=== PATIENT | male | born 1935 | race Caucasian/White ===

== ENCOUNTER 2019-10-26 14:33 | Inpatient (IN) | payer OTHER ==
[~2019-10-26] VITALS: Ht 182.9 cm; Wt 104.5 kg
[~2019-10-26 14:33] MED LIST: ACET-3071 PO; ASPI-1265 PO; ATOR10TA70 PO; CEFD300C3 PO; CLON0.1T2 PO; DOCU-148; DULO-31 PO; FINA5TAB11 PO; FLO0.4C PO; LACT1CAP26 PO; MAGN400C PO; METO-539 PO; MULT-1085 PO; NOR5T PO; PANT40TA4 PO; POLY119P2 PO
[2019-10-26 15:36] LABS: BASOPHILS # (AUTO) 0.1 X10'3 (0-0.2); BASOPHILS % (AUTO) 0.8 % (0-1); EOSINOPHILS # (AUTO) 0.2 X10'3 (0-0.9); EOSINOPHILS % (AUTO) 2.7 % (0-6); HEMOGLOBIN 13.3 g/dl (14.0-17.9); LYMPHOCYTES # (AUTO) 1.3 X10'3 (1.1-4.8); LYMPHOCYTES % (AUTO) 17.3 % (21-51); MEAN CORPUSCULAR HEMOGLOBIN 29.6 PG (27.0-31.0); MEAN CORPUSCULAR HGB CONC 33.2 g/dL (33.0-36.5); MEAN CORPUSCULAR VOLUME 89.1 FL (78-98); MEAN PLATELET VOLUME 9.6 FL (7.4-10.4); MONOCYTES # (AUTO) 0.6 X10'3 (0-0.9); MONOCYTES % (AUTO) 8.7 % (2-12); NEUTROPHILS # (AUTO) 5.1 X10'3 (1.8-7.7); NEUTROPHILS % (AUTO) 70.5 % (42-75); PLATELET COUNT 236 X10'3 (140-440); RED BLOOD COUNT 4.49 X10'6 (4.70-6.10); RED CELL DISTRIBUTION WIDTH 14.3 % (11.5-14.5); WHITE BLOOD COUNT 7.3 X10'3 (4.5-11.0)
[2019-10-26 15:45] LABS: PARTIAL THROMBOPLASTIN TIME 29 SECONDS (22-32)
[2019-10-26 15:47] LABS: ALANINE AMINOTRANSFERASE 35 U/L (12-78); ALBUMIN 3.3 G/DL (3.4-5.0); ALBUMIN/GLOBULIN RATIO 0.9 (1.1-1.5); ALKALINE PHOSPHATASE 115 IU/L (46-116); ANION GAP 6 (8-16); ASPARTATE AMINO TRANSFERASE 15 U/L (10-37); BILIRUBIN,TOTAL 0.3 MG/DL (0.1-1.0); BLOOD UREA NITROGEN 32 MG/DL (7-18); BUN/CREATININE RATIO 29.6 (5.4-32.0); CALCIUM 10.2 MG/DL (8.5-10.1); CHLORIDE 106 MMOL/L (99-107); CREATININE 1.08 MG/DL (0.60-1.10); GLUCOSE 95 MG/DL (70-104); POTASSIUM 4.2 MMOL/L (3.5-5.1); SODIUM 141 MMOL/L (135-145); TOTAL CARBON DIOXIDE 29.1 MMOL/L (24-32); eGFR 65 ML/MIN
[2019-10-26] MEDS ORDERED: aspirin 325mg tablet PO ONE (16:00)
[2019-10-26] MEDS ORDERED: magnesium 4gm in 100ml NS 100 ML IV PRN (16:50)
[2019-10-26] MEDS ORDERED: potassium Cl 20 mEq SR tablet PO PRN (16:50)
[2019-10-26] MEDS ORDERED: magnesium 2GM in 50ml NS 50 ML IV PRN (16:50)
[2019-10-26] MEDS ORDERED: acetaminophen 325mg tablet PO PRN (16:50)
[2019-10-26] MEDS ORDERED: potassium CL 10mEq/100ml bag 100 ML IV PRN ×2 (16:50)
[2019-10-26] MEDS ORDERED: ondansetron/PF 4mg/2ml inj IV PRN (16:50)
[2019-10-26] MEDS ORDERED: CLON-473 PO (17:06)
[2019-10-26] MEDS ORDERED: AMLO5TAB16 PO (17:06)
[2019-10-26] MEDS ORDERED: LACT1CAP65 PO (17:06)
[2019-10-26] MEDS: normal saline 1000ml 1,000 ML IV SCH (17:19)
[2019-10-26] MEDS: clopidogrel 75mg tablet PO SCH (17:29)
[2019-10-26] MEDS ORDERED: clopidogrel 75mg tablet PO ONE (17:30)
[2019-10-26] MEDS ORDERED: METO-384 PO (19:14)
[2019-10-26] MEDS ORDERED: NITR0.4T51 SL (19:14)
[2019-10-26] MEDS: K and/or MAG REPLACEMENT MC SCH (20:00)
[2019-10-26 21:00] VITALS: BP 171/94
[2019-10-26 22:00] VITALS: BP 165/71
[2019-10-27 04:00] VITALS: BP 142/60
[2019-10-27 06:00] VITALS: BP 177/87
[2019-10-27 06:21] LABS: BASOPHILS # (AUTO) 0.1 X10'3 (0-0.2); BASOPHILS % (AUTO) 0.9 % (0-1); EOSINOPHILS # (AUTO) 0.2 X10'3 (0-0.9); EOSINOPHILS % (AUTO) 3.8 % (0-6); HEMATOCRIT 37.8 % (42.0-52.0); LYMPHOCYTES # (AUTO) 1.2 X10'3 (1.1-4.8); LYMPHOCYTES % (AUTO) 18.8 % (21-51); MEAN CORPUSCULAR HEMOGLOBIN 30.4 PG (27.0-31.0); MEAN CORPUSCULAR HGB CONC 34.5 g/dL (33.0-36.5); MEAN CORPUSCULAR VOLUME 88.1 FL (78-98); MEAN PLATELET VOLUME 9.9 FL (7.4-10.4); MONOCYTES # (AUTO) 0.8 X10'3 (0-0.9); NEUTROPHILS # (AUTO) 4.2 X10'3 (1.8-7.7); NEUTROPHILS % (AUTO) 64.5 % (42-75); PLATELET COUNT 216 X10'3 (140-440); RED BLOOD COUNT 4.29 X10'6 (4.70-6.10); RED CELL DISTRIBUTION WIDTH 14.1 % (11.5-14.5); WHITE BLOOD COUNT 6.5 X10'3 (4.5-11.0)
--- NOTE | 2019-10-27 06:27 | NUR ---
Problems reprioritized. Patient report given, questions answered & plan of care reviewed with GIO Donovan.
--- NOTE | 2019-10-27 06:35 | NUR ---
Patient in room ORTHO 4011. I have received report from Idalmis POWERS and had the opportunity to ask questions and assume patient care.
[2019-10-27 06:49] LABS: ALBUMIN 2.9 G/DL (3.4-5.0); ANION GAP 7 (8-16); BLOOD UREA NITROGEN 28 MG/DL (7-18); CALCIUM 9.7 MG/DL (8.5-10.1); CHLORIDE 108 MMOL/L (99-107); CHOL/HDL RATIO 3.5 (0.00-4.99); CHOLESTEROL 90 MG/DL (0-200); CREATININE 1.12 MG/DL (0.60-1.10); GLUCOSE 118 MG/DL (70-104); HDL CHOLESTEROL 26 MG/DL (35-60); LDL CHOLESTEROL 48 MG/DL (50-100); MAGNESIUM 1.4 MG/DL (1.5-2.4); POTASSIUM 3.6 MMOL/L (3.5-5.1); SODIUM 144 MMOL/L (135-145); TOTAL CARBON DIOXIDE 29.2 MMOL/L (24-32); TRIGLYCERIDES 114 MG/DL (20-135); eGFR 63 ML/MIN
[2019-10-27] MEDS: clopidogrel 75mg tablet PO SCH (07:29)
[2019-10-27 08:00] VITALS: BP 156/91
[2019-10-27] MEDS: K and/or MAG REPLACEMENT MC SCH ×2 (08:00→19:22)
[2019-10-27 12:00] VITALS: BP 177/87
[2019-10-27 14:42] LABS: CLARITY,URINE CLEAR (Clear); COLOR,URINE YELLOW (Yellow); GLUCOSE, URINE NEGATIVE (Neg); KETONES,URINE NEGATIVE (Neg); LEUKOCYTE ESTERASE ,URINE LARGE (Neg); NITRITES, URINE NEGATIVE (Neg); OCCULT BLOOD,URINE TRACE-INTACT (Neg); PH,URINE 6.5 (4.8-8.0); PROTEIN,URINE NEGATIVE (Neg); UROBILINOGEN,URINE 0.2 E.U/dL (0.2-1.0)
[2019-10-27 14:54] LABS: UA COLLECTION TYPE CLN CATCH MIDSTREAM
[2019-10-27 14:55] LABS: BACTERIA,URINE FEW /HPF (Neg); MUCUS STRANDS FEW /LPF (Neg); RBC,URINE 0-2 /HPF (0-2); SQUAMOUS EPITHELIAL CELL,UR FEW /LPF (FEW); WBC,URINE 50-100 /HPF (0-4)
[2019-10-27 15:42] VITALS: BP 170/81
[2019-10-27] MEDS ORDERED: nitroGLYCERIN 0.4mg SUBLingual tab SL PRN (17:40)
[2019-10-27] MEDS ORDERED: tamsulosin 0.4mg capsule PO SCH (17:40)
[2019-10-27] MEDS ORDERED: duloxetine 30mg CAPSULE.DR PO SCH (17:40)
[2019-10-27] MEDS ORDERED: cloNIDine 0.1 mg tablet PO PRN (17:40)
[2019-10-27] MEDS ORDERED: finasteride 5mg tablet PO SCH (17:40)
[2019-10-27] MEDS ORDERED: aspirin 81mg tab.chew PO SCH (17:40)
--- NOTE | 2019-10-27 18:04 | NUR ---
Problems reprioritized. Patient report given, questions answered & plan of care reviewed with Idalmis Reina RN.
[2019-10-27 20:00] VITALS: BP 175/87
[2019-10-27] MEDS: tamsulosin 0.4mg capsule PO SCH ×2 (20:00→20:04)
[2019-10-27] MEDS: duloxetine 30mg CAPSULE.DR PO SCH ×2 (20:00→20:05)
[2019-10-27] MEDS: pantoprazole 40mg Tablet.DR PO SCH ×2 (20:00→20:04)
[2019-10-27] MEDS: lactobacillus rhamnosus 10,000 MMU CELLS/CAPSULE PO SCH ×2 (20:00→20:04)
[2019-10-27] MEDS: finasteride 5mg tablet PO SCH ×2 (20:00→20:05)
[2019-10-27] MEDS: aspirin 81mg tab.chew PO SCH ×2 (20:04→20:13)
[2019-10-27] MEDS: atorvastatin 10mg tablet PO SCH (20:05)
--- NOTE | 2019-10-27 20:42 | NUR ---
Woke patient to assess and give meds. Patient very sleepy. Took his BS for 86. Patient did not eat any dinner. He refused all medications stating that he'd rather not take them. Explained what each one is for, but patient still refused them. I asked if he was feeling any different, but he just said he felt stiff from sleeping in an upright position. Got him changed, due to incont., and repositioned for comfort.
[2019-10-28] VITALS: BP 167/74
[2019-10-28 05:25] LABS: BASOPHILS % (AUTO) 0.6 % (0-1); EOSINOPHILS # (AUTO) 0.2 X10'3 (0-0.9); EOSINOPHILS % (AUTO) 3.6 % (0-6); HEMATOCRIT 38.1 % (42.0-52.0); HEMOGLOBIN 12.8 g/dl (14.0-17.9); LYMPHOCYTES # (AUTO) 1.4 X10'3 (1.1-4.8); LYMPHOCYTES % (AUTO) 20.7 % (21-51); MEAN CORPUSCULAR HGB CONC 33.6 g/dL (33.0-36.5); MEAN PLATELET VOLUME 9.6 FL (7.4-10.4); MONOCYTES # (AUTO) 0.8 X10'3 (0-0.9); MONOCYTES % (AUTO) 11.8 % (2-12); NEUTROPHILS # (AUTO) 4.2 X10'3 (1.8-7.7); NEUTROPHILS % (AUTO) 63.3 % (42-75); PLATELET COUNT 222 X10'3 (140-440); RED BLOOD COUNT 4.28 X10'6 (4.70-6.10); RED CELL DISTRIBUTION WIDTH 14.5 % (11.5-14.5); WHITE BLOOD COUNT 6.6 X10'3 (4.5-11.0)
[2019-10-28 05:39] LABS: ANION GAP 8 (8-16); BLOOD UREA NITROGEN 25 MG/DL (7-18); BUN/CREATININE RATIO 20.8 (5.4-32.0); CALCIUM 9.8 MG/DL (8.5-10.1); CHLORIDE 109 MMOL/L (99-107); GLUCOSE 84 MG/DL (70-104); MAGNESIUM 1.4 MG/DL (1.5-2.4); POTASSIUM 3.4 MMOL/L (3.5-5.1); SODIUM 144 MMOL/L (135-145); TOTAL CARBON DIOXIDE 27.5 MMOL/L (24-32); eGFR 58 ML/MIN
[2019-10-28 06:00] VITALS: BP 170/76
--- NOTE | 2019-10-28 06:26 | NUR ---
Problems reprioritized. Patient report given, questions answered & plan of care reviewed with GIO Mancuso.
--- NOTE | 2019-10-28 06:30 | NUR ---
Patient in room ORTHO 4011. I have received report from Idalmis POWERS and had the opportunity to ask questions and assume patient care.
[2019-10-28] MEDS: K and/or MAG REPLACEMENT MC SCH ×2 (08:00→20:00)
[2019-10-28] MEDS: finasteride 5mg tablet PO SCH (08:36)
[2019-10-28] MEDS: potassium Cl 20 mEq SR tablet PO PRN ×3 (08:41→17:00)
[2019-10-28] MEDS: tamsulosin 0.4mg capsule PO SCH (08:41)
[2019-10-28] MEDS: duloxetine 30mg CAPSULE.DR PO SCH (08:41)
[2019-10-28] MEDS: metoprolol succinate 25mg (24-HOUR) SR. Tablet PO SCH (08:41)
[2019-10-28] MEDS: clopidogrel 75mg tablet PO SCH (08:41)
[2019-10-28] MEDS: pantoprazole 40mg Tablet.DR PO SCH ×2 (08:42→19:09)
[2019-10-28] MEDS: magnesium oxide 400mg tablet PO SCH ×2 (08:42→19:09)
[2019-10-28] MEDS: aspirin 81mg tab.chew PO SCH (08:42)
[2019-10-28] MEDS: lactobacillus rhamnosus 10,000 MMU CELLS/CAPSULE PO SCH ×2 (08:42→19:09)
[2019-10-28] MEDS: multivitamins, therapeutics tablet PO SCH (08:43)
[2019-10-28] MEDS: acetaminophen 325mg tablet PO SCH ×3 (08:44→16:09)
[2019-10-28] MEDS: polyethylene glycol 3350 17gm powd pack PO SCH (08:56)
[2019-10-28 10:00] VITALS: BP 169/56
[2019-10-28] MEDS: magnesium Cl slow-release 64mg tablet PO PRN (12:30)
[2019-10-28] MEDS: cloNIDine 0.1 mg tablet PO PRN (17:00)
[2019-10-28 18:00] VITALS: BP 185/91
--- NOTE | 2019-10-28 18:06 | NUR ---
Problems reprioritized. Patient report given, questions answered & plan of care reviewed with Nuria POWERS.
--- NOTE | 2019-10-28 18:15 | NUR ---
Patient in room ORTHO 4011. I have received report from Jamee POWERS and had the opportunity to ask questions and assume patient care.
[2019-10-28 19:24] VITALS: BP 169/78
[2019-10-28] MEDS: atorvastatin 10mg tablet PO SCH (20:02)
[2019-10-28 22:00] VITALS: BP 164/78
[2019-10-28] MEDS: normal saline 1000ml 1,000 ML IV SCH (22:23)
[2019-10-29] MEDS: cloNIDine 0.1 mg tablet PO PRN (05:02)
[2019-10-29 05:52] LABS: BASOPHILS % (AUTO) 0.5 % (0-1); EOSINOPHILS # (AUTO) 0.3 X10'3 (0-0.9); EOSINOPHILS % (AUTO) 3.8 % (0-6); HEMATOCRIT 39.5 % (42.0-52.0); HEMOGLOBIN 13.2 g/dl (14.0-17.9); LYMPHOCYTES # (AUTO) 1.5 X10'3 (1.1-4.8); MEAN CORPUSCULAR HEMOGLOBIN 29.7 PG (27.0-31.0); MEAN CORPUSCULAR HGB CONC 33.4 g/dL (33.0-36.5); MEAN CORPUSCULAR VOLUME 88.9 FL (78-98); MEAN PLATELET VOLUME 9.5 FL (7.4-10.4); MONOCYTES # (AUTO) 0.9 X10'3 (0-0.9); MONOCYTES % (AUTO) 12.6 % (2-12); NEUTROPHILS # (AUTO) 4.6 X10'3 (1.8-7.7); NEUTROPHILS % (AUTO) 63.1 % (42-75); PLATELET COUNT 207 X10'3 (140-440); RED BLOOD COUNT 4.44 X10'6 (4.70-6.10); RED CELL DISTRIBUTION WIDTH 14.4 % (11.5-14.5); WHITE BLOOD COUNT 7.3 X10'3 (4.5-11.0)
[2019-10-29 06:00] VITALS: BP 162/82
--- NOTE | 2019-10-29 06:20 | NUR ---
Problems reprioritized. Patient report given, questions answered & plan of care reviewed with Ingris POWERS.
[2019-10-29 06:24] LABS: ALBUMIN 2.9 G/DL (3.4-5.0); ANION GAP 6 (8-16); BLOOD UREA NITROGEN 24 MG/DL (7-18); BUN/CREATININE RATIO 22.6 (5.4-32.0); CHLORIDE 107 MMOL/L (99-107); CREATININE 1.06 MG/DL (0.60-1.10); GLUCOSE 94 MG/DL (70-104); MAGNESIUM 1.4 MG/DL (1.5-2.4); POTASSIUM 3.6 MMOL/L (3.5-5.1); SODIUM 140 MMOL/L (135-145); eGFR 67 ML/MIN
[2019-10-29] MEDS: lactobacillus rhamnosus 10,000 MMU CELLS/CAPSULE PO SCH (09:03)
[2019-10-29] MEDS: aspirin 81mg tab.chew PO SCH (09:03)
[2019-10-29] MEDS: duloxetine 30mg CAPSULE.DR PO SCH (09:03)
[2019-10-29] MEDS: polyethylene glycol 3350 17gm powd pack PO SCH (09:04)
[2019-10-29] MEDS: magnesium oxide 400mg tablet PO SCH (09:04)
[2019-10-29] MEDS: clopidogrel 75mg tablet PO SCH (09:04)
[2019-10-29] MEDS: tamsulosin 0.4mg capsule PO SCH (09:04)
[2019-10-29] MEDS: finasteride 5mg tablet PO SCH (09:05)
[2019-10-29] MEDS: metoprolol succinate 25mg (24-HOUR) SR. Tablet PO SCH (09:06)
[2019-10-29] MEDS: pantoprazole 40mg Tablet.DR PO SCH (09:06)
[2019-10-29] MEDS: multivitamins, therapeutics tablet PO SCH (09:06)
[2019-10-29] MEDS: acetaminophen 325mg tablet PO SCH ×2 (09:14)
[2019-10-29] MEDS: magnesium Cl slow-release 64mg tablet PO PRN (09:26)
[2019-10-29 10:00] VITALS: BP 154/72
[2019-10-29] MEDS ORDERED: tamsulosin capsule PO (11:42)
[2019-10-29] MEDS ORDERED: CLOP75TA35 PO (11:42)
--- NOTE | 2019-10-29 15:50 | NUR ---
Received discharge orders from Dr. Prieto for patient to transfer to [facility] for Rehab today. Called report to GIO Blanco at [facility] at approximately 11:30 am. [facility] arrived at 1545 and pt transferred from bed to [facility]. Discharged at 1545.
== END 2019-10-29 16:00 | DRG 69 ==
LOC: ER 14:34 → ED HOLD 16:47 → UNDOADMOB 16:53 → ED HOLD 16:53 → ORTHO 4S 18:55 → ED HOLD 18:55 → OBSVTOIN 10-27 13:52
PROVIDERS: ADMIT Internal Medicine; ATTEND Internal Medicine
DX: G45.9 Transient cerebral ischemic attack, unspecified (principal); E11.9 Type 2 diabetes mellitus without complications; E78.5 Hyperlipidemia, unspecified; I10 Essential (primary) hypertension; I25.10 Atherosclerotic heart disease of native coronary artery without angina pectoris; N40.0 Benign prostatic hyperplasia without lower urinary tract symptoms; F32.9 Major depressive disorder, single episode, unspecified; G89.29 Other chronic pain; K21.9 Gastro-esophageal reflux disease without esophagitis; M19.90 Unspecified osteoarthritis, unspecified site; M54.9 Dorsalgia, unspecified; N28.9 Disorder of kidney and ureter, unspecified; Z87.11 Personal history of peptic ulcer disease; Z87.442 Personal history of urinary calculi; Z88.0 Allergy status to penicillin; Z79.899 Other long term (current) drug therapy
CPT/HCPCS: 36415; 70450; 70551; 71045; 80048; 80053; 80061; 81001; 82948; 83735; 85025; 85610; 85730; 87081; 87088; 93005; 93306; 93880; 97110; 97116; 97161; 97530; 97535; 99285; G0378; J7030

== ENCOUNTER 2019-12-06 17:39 | Emergency (ER) | payer OTHER, MEDICARE ==
[~2019-12-06] VITALS: Ht 177.8 cm; Wt 90.0 kg
[~2019-12-06 17:39] MED LIST changes: -ACET-3071 PO; +ACET325T55 PO; -CEFD300C3 PO; +CLON-473 PO; -CLON0.1T2 PO; +CLOP75TA35 PO; -DOCU-148; -LACT1CAP26 PO; +LACT1CAP65 PO; +METO-384 PO; -METO-539 PO; +NITR0.4T51 SL; -NOR5T PO
--- NOTE | 2019-12-06 18:45 | NUR ---
PT IS A DIFFICULT IV START/LAB DRAW - LAB HAS TRIED 2 DIFFERENT PHLEBOTOMISTS AND I TRIED WELL. I WAS ABLE TO CANNULATE THE VEIN BUT NOT THREAD THE CATHETER. I WAS NOT ABLE TO GET LABS. PROVIDER AWARE.
[2019-12-06 19:38] LABS: BASOPHILS # (AUTO) 0.1 X10'3 (0-0.2); BASOPHILS % (AUTO) 1.2 % (0-1); EOSINOPHILS # (AUTO) 0.4 X10'3 (0-0.9); EOSINOPHILS % (AUTO) 7.8 % (0-6); HEMATOCRIT 24.8 % (42.0-52.0); HEMOGLOBIN 8.4 g/dl (14.0-17.9); LYMPHOCYTES # (AUTO) 1.2 X10'3 (1.1-4.8); LYMPHOCYTES % (AUTO) 21.5 % (21-51); MEAN CORPUSCULAR HEMOGLOBIN 32.2 PG (27.0-31.0); MEAN CORPUSCULAR VOLUME 94.7 FL (78-98); MEAN PLATELET VOLUME 8.6 FL (7.4-10.4); MONOCYTES # (AUTO) 0.7 X10'3 (0-0.9); MONOCYTES % (AUTO) 11.7 % (2-12); NEUTROPHILS # (AUTO) 3.2 X10'3 (1.8-7.7); NEUTROPHILS % (AUTO) 57.8 % (42-75); PLATELET COUNT 230 X10'3 (140-440); RED BLOOD COUNT 2.62 X10'6 (4.70-6.10); WHITE BLOOD COUNT 5.6 X10'3 (4.5-11.0)
[2019-12-06 19:57] LABS: ALANINE AMINOTRANSFERASE 24 U/L (12-78); ALBUMIN 2.4 G/DL (3.4-5.0); ALBUMIN/GLOBULIN RATIO 0.8 (1.1-1.5); ALKALINE PHOSPHATASE 80 IU/L (46-116); ANION GAP 2 (8-16); ASPARTATE AMINO TRANSFERASE 23 U/L (10-37); BILIRUBIN,TOTAL 0.3 MG/DL (0.1-1.0); BLOOD UREA NITROGEN 16 MG/DL (7-18); BUN/CREATININE RATIO 14.3 (5.4-32.0); CHLORIDE 114 MMOL/L (99-107); CREATININE 1.12 MG/DL (0.60-1.10); GLUCOSE 86 MG/DL (70-104); POTASSIUM 4.3 MMOL/L (3.5-5.1); SODIUM 145 MMOL/L (135-145); TOTAL CARBON DIOXIDE 28.9 MMOL/L (24-32); TOTAL PROTEIN 5.5 G/DL (6.4-8.2); eGFR 63 ML/MIN
--- NOTE | 2019-12-06 21:29 | NUR ---
called his and let her know that he will be going back to [facility]
--- NOTE | 2019-12-06 21:53 | NUR ---
BIPIN TO [facility] AND THEY WILL BE SENDING TRANSPORT FOR PATIENT
[2019-12-06 22:23] VITALS: BP 161/95
== END 2019-12-06 22:25 | disposition home or self-care (01) ==
LOC: ER 17:39
DX: K92.1 Melena (principal); D64.9 Anemia, unspecified; F03.90 Unspecified dementia, unspecified severity, without behavioral disturbance, psychotic disturbance, mood disturbance, and anxiety; I25.10 Atherosclerotic heart disease of native coronary artery without angina pectoris; E78.00 Pure hypercholesterolemia, unspecified; I10 Essential (primary) hypertension; E11.9 Type 2 diabetes mellitus without complications; G89.29 Other chronic pain; Z86.73 Personal history of transient ischemic attack (TIA), and cerebral infarction without residual deficits; Z88.0 Allergy status to penicillin; Z79.82 Long term (current) use of aspirin; Z79.899 Other long term (current) drug therapy
CPT/HCPCS: 36415; 71045; 80053; 85025; 85610; 86885; 86900; 86901; 93005; 99285

== ENCOUNTER 2019-12-10 15:11 | Inpatient (IN) | payer OTHER, MEDICARE ==
[~2019-12-10] VITALS: Ht 177.8 cm; Wt 90.0 kg
[2019-12-10 16:01] LABS: ABG BASE EXCESS 3.3 mmol/L (-2.0-3.0); ABG HCO3 26.7 mmol/L (22.0-26.0); ABG OXYGEN SATURATION 93.3 % (95-98); ABG PCO2 (T) 35.6 mmHg (35.0-45.0); ABG PH (T) 7.493 (7.350-7.450); ABG PO2 (T) 63.1 mmHg (83-108); ALLEN'S TEST POSITIVE; FCOHb 0.5 % (0.5-1.5); FO2Hb 92.8 % (94-100)
[2019-12-10 16:06] LABS: EOSINOPHILS % (AUTO) 0.1 % (0-6); HEMOGLOBIN 7.3 g/dl (14.0-17.9); LYMPHOCYTES # (AUTO) 0.2 X10'3 (1.1-4.8); RED BLOOD COUNT 2.33 X10'6 (4.70-6.10)
[2019-12-10 16:07] LABS: BASOPHILS % (AUTO) 0.2 % (0-1); LYMPHOCYTES % (AUTO) 1.8 % (21-51); MEAN CORPUSCULAR HEMOGLOBIN 31.4 PG (27.0-31.0); MEAN CORPUSCULAR HGB CONC 33.5 g/dL (33.0-36.5); MEAN CORPUSCULAR VOLUME 93.7 FL (78-98); MEAN PLATELET VOLUME 8.8 FL (7.4-10.4); MONOCYTES # (AUTO) 0.8 X10'3 (0-0.9); MONOCYTES % (AUTO) 8.4 % (2-12); NEUTROPHILS # (AUTO) 9.1 X10'3 (1.8-7.7); NEUTROPHILS % (AUTO) 89.5 % (42-75); PLATELET COUNT 263 X10'3 (140-440); RED CELL DISTRIBUTION WIDTH 15.3 % (11.5-14.5); WHITE BLOOD COUNT 10.1 X10'3 (4.5-11.0)
[2019-12-10 16:11] LABS: HEMATOCRIT 21.8 % (42.0-52.0)
[2019-12-10 16:18] LABS: AMMONIA < 10 UMOL/L (11-32)
[2019-12-10 16:21] LABS: ALANINE AMINOTRANSFERASE 26 U/L (12-78); ALBUMIN 2.3 G/DL (3.4-5.0); ALBUMIN/GLOBULIN RATIO 0.7 (1.1-1.5); ALKALINE PHOSPHATASE 92 IU/L (46-116); ANION GAP 6 (8-16); ASPARTATE AMINO TRANSFERASE 20 U/L (10-37); BILIRUBIN,TOTAL 0.7 MG/DL (0.1-1.0); BLOOD UREA NITROGEN 25 MG/DL (7-18); BUN/CREATININE RATIO 13.8 (5.4-32.0); CALCIUM 8.9 MG/DL (8.5-10.1); CHLORIDE 106 MMOL/L (99-107); CREATININE 1.81 MG/DL (0.60-1.10); GLUCOSE 121 MG/DL (70-104); POTASSIUM 3.3 MMOL/L (3.5-5.1); SODIUM 140 MMOL/L (135-145); TOTAL CARBON DIOXIDE 28.2 MMOL/L (24-32); TOTAL PROTEIN 5.7 G/DL (6.4-8.2); eGFR 36 ML/MIN
[2019-12-10 16:24] LABS: LACTIC SEPSIS 1.5 MMOL/L (0.4-2.0)
[2019-12-10 16:25] LABS: ETHANOL < 0.010 GM/DL (0.0-0.010); TROPONIN I 0.12 NG/ML (0.0-0.05)
[2019-12-10] MEDS ORDERED: CefTRIAXone 2gm/D5W 50ml 50 ML IV ONE (16:25)
[2019-12-10] MEDS ORDERED: pantoprazole 40 MG vial IV ONE (16:25)
[2019-12-10] MEDS ORDERED: AMLO5TAB16 PO (17:04)
[2019-12-10] MEDS: normal saline 1000ml 1,000 ML IV SCH (17:19)
[2019-12-10] MEDS ORDERED: ondansetron/PF 4mg/2ml inj IV PRN (17:20)
[2019-12-10] MEDS ORDERED: potassium CL 10mEq/100ml bag 100 ML IV PRN ×2 (17:20)
[2019-12-10] MEDS ORDERED: magnesium 4gm in 100ml NS 100 ML IV PRN (17:20)
[2019-12-10] MEDS ORDERED: magnesium 2GM in 50ml NS 50 ML IV PRN (17:20)
[2019-12-10] MEDS ORDERED: potassium Cl 20 mEq SR tablet PO PRN (17:20)
[2019-12-10] MEDS ORDERED: magnesium Cl slow-release 64mg tablet PO PRN (17:20)
[2019-12-10 17:26] LABS: CLARITY,URINE TURBID (Clear); COLOR,URINE YELLOW (Yellow); GLUCOSE, URINE NEGATIVE (Neg); KETONES,URINE NEGATIVE (Neg); LEUKOCYTE ESTERASE ,URINE LARGE (Neg); NITRITES, URINE POSITIVE (Neg); OCCULT BLOOD,URINE LARGE (Neg); PH,URINE 6.5 (4.8-8.0); PROTEIN,URINE 100 mg/dl (Neg); UA COLLECTION TYPE STRAIGHT CATH; UROBILINOGEN,URINE 0.2 E.U/dL (0.2-1.0)
[2019-12-10 17:33] LABS: BACTERIA,URINE 4+ /HPF (Neg); MUCUS STRANDS NONE SEEN /LPF (Neg); SQUAMOUS EPITHELIAL CELL,UR NONE SEEN /LPF (FEW); WBC CLUMPS,URINE MANY /HPF (NEGATIVE); WBC,URINE TNTC /HPF (0-4)
[2019-12-10 17:34] LABS: URINE AMPHETAMINE SCREEN NEGATIVE (Neg); URINE BARBITUATE SCREEN NEGATIVE (Neg); URINE BENZODIAZEPINES SCREEN NEGATIVE (Neg); URINE CANNABINOID SCREEN NEGATIVE (Neg); URINE COCAINE SCREEN NEGATIVE (Neg); URINE METHADONE SCREEN NEGATIVE (Neg); URINE OPIATE SCREEN NEGATIVE (Neg); URINE PHENCYCLIDINE SCREEN NEGATIVE (Neg)
[2019-12-10 17:51] LABS: OCCULT BLOOD STOOL POSITIVE (Neg)
[2019-12-10 17:52] LABS: PARTIAL THROMBOPLASTIN TIME 30 SECONDS (22-32)
--- NOTE | 2019-12-10 18:00 | NUR ---
Patient in room PCU 3026. I have received report from Jadon POWERS in ER by Telephone and had the opportunity to ask questions and assume patient care.
[2019-12-10] MEDS ORDERED: cloNIDine 0.1 mg tablet PO PRN (18:10)
[2019-12-10] MEDS ORDERED: LIDOcaine 2% 10ml TOPICAL JELLY (Urojet) TP ONE (18:15)
[2019-12-10] MEDS: levoFLOXACIN-Levaquin 500mg/D5 100 ML IV SCH (18:29)
[2019-12-10 19:30] VITALS: BP 95/44
[2019-12-10] MEDS: K and/or MAG REPLACEMENT MC SCH (20:00)
[2019-12-10 21:45] VITALS: BP 130/61
[2019-12-10 22:00] VITALS: BP 130/61
[2019-12-10 22:15] VITALS: BP 136/64
[2019-12-10] MEDS: atorvastatin 10mg tablet PO SCH (22:28)
[2019-12-10] MEDS: lactobacillus rhamnosus 10,000 MMU CELLS/CAPSULE PO SCH (22:28)
[2019-12-10 22:30] VITALS: BP 136/60
[2019-12-10] MEDS: potassium Cl 20 mEq SR tablet PO PRN (22:31)
[2019-12-10 23:00] VITALS: BP 139/80
[2019-12-11] VITALS: BP 140/60
[2019-12-11] MEDS: amLODIPine 5mg tablet PO SCH ×2 (00:02→08:27)
[2019-12-11] MEDS: acetaminophen 325mg tablet PO PRN (00:03)
--- NOTE | 2019-12-11 00:38 | NUR ---
PAGER ID: [phone] MESSAGE: [id number] Javier Blackmon: Previous visits patient has DM type 2. Would you like to put on hyperglycemic protocol? Ania POWERS [id number]
[2019-12-11] MEDS ORDERED: insulin Lispro (HumaLOG) vial - multi-dose SQ SCH (00:50)
[2019-12-11] MEDS ORDERED: MESSAGE TO PHARMACY PO ONE (00:50)
[2019-12-11] MEDS ORDERED: glucagon, human recombinant 1mg kit SUBCUT PRN (00:50)
[2019-12-11] MEDS ORDERED: dextrose ORAL solution 15 GM/59 ML bottle PO PRN ×2 (00:50)
[2019-12-11] MEDS ORDERED: dextrose 50%-water 50ml dispensing syringe IV PRN ×2 (00:50)
[2019-12-11 02:00] VITALS: BP 98/43
[2019-12-11 02:19] LABS: MEAN CORPUSCULAR HGB CONC 33.1 g/dL (33.0-36.5); WHITE BLOOD COUNT 8.1 X10'3 (4.5-11.0)
[2019-12-11 02:21] LABS: BASOPHILS % (AUTO) 0.4 % (0-1); EOSINOPHILS % (AUTO) 0.2 % (0-6); HEMOGLOBIN 8.3 g/dl (14.0-17.9); LYMPHOCYTES # (AUTO) 0.2 X10'3 (1.1-4.8); LYMPHOCYTES % (AUTO) 2.2 % (21-51); MEAN CORPUSCULAR HEMOGLOBIN 30.7 PG (27.0-31.0); MEAN CORPUSCULAR VOLUME 92.8 FL (78-98); MEAN PLATELET VOLUME 8.9 FL (7.4-10.4); MONOCYTES # (AUTO) 0.5 X10'3 (0-0.9); MONOCYTES % (AUTO) 6.4 % (2-12); NEUTROPHILS # (AUTO) 7.3 X10'3 (1.8-7.7); NEUTROPHILS % (AUTO) 90.8 % (42-75); PLATELET COUNT 237 X10'3 (140-440); RED BLOOD COUNT 2.69 X10'6 (4.70-6.10); RED CELL DISTRIBUTION WIDTH 15.2 % (11.5-14.5)
[2019-12-11 02:32] LABS: ANION GAP 6 (8-16); BLOOD UREA NITROGEN 26 MG/DL (7-18); BUN/CREATININE RATIO 15.2 (5.4-32.0); CALCIUM 8.1 MG/DL (8.5-10.1); CHLORIDE 109 MMOL/L (99-107); CREATININE 1.71 MG/DL (0.60-1.10); GLUCOSE 100 MG/DL (70-104); POTASSIUM 3.4 MMOL/L (3.5-5.1); SODIUM 144 MMOL/L (135-145); TOTAL CARBON DIOXIDE 28.9 MMOL/L (24-32); eGFR 38 ML/MIN
[2019-12-11] MEDS: normal saline 1000ml 1,000 ML IV SCH ×3 (03:19→20:51)
[2019-12-11 06:00] VITALS: BP 101/48
--- NOTE | 2019-12-11 06:34 | NUR ---
Problems reprioritized. Patient report given, questions answered & plan of care reviewed with Curt RN.
--- NOTE | 2019-12-11 06:53 | NUR ---
PAGER ID: [phone] MESSAGE: DR. PRATHER, 3028T/REINA, POSITIVE BLOOD CULTURE, ANAROB. BOTTLE, GM - DESI @ 12.5 HOURS.LEFT ARM, 12/10/19 @1333. TY, TOJN [id number].
--- NOTE | 2019-12-11 06:55 | NUR ---
Patient in room PCU 3026. I have received report from GIO PONCE and had the opportunity to ask questions and assume patient care.
[2019-12-11] MEDS: K and/or MAG REPLACEMENT MC SCH ×2 (08:00→20:00)
[2019-12-11] MEDS: levoFLOXACIN-Levaquin 500mg/D5 100 ML IV SCH (08:21)
[2019-12-11] MEDS: lactobacillus rhamnosus 10,000 MMU CELLS/CAPSULE PO SCH ×2 (08:26→20:51)
[2019-12-11] MEDS: duloxetine 30mg CAPSULE.DR PO SCH (08:26)
[2019-12-11] MEDS: tamsulosin 0.4mg capsule PO SCH (08:27)
[2019-12-11] MEDS: metoprolol succinate 25mg (24-HOUR) SR. Tablet PO SCH (08:28)
[2019-12-11] MEDS: finasteride 5mg tablet PO SCH (08:28)
[2019-12-11] MEDS: potassium Cl 20 mEq SR tablet PO PRN ×2 (08:29→12:13)
--- NOTE | 2019-12-11 08:56 | NUR ---
PAGER ID: [phone] MESSAGE: DR. COOL, 4875Q/REINA, 3OUT OF 4 BC +, L ARM, AEROBIC, GM - RODS, + AT 1441, 1544. NABIL [id number], TY
[2019-12-11 09:17] LABS: TROPONIN I 0.04 NG/ML (0.0-0.05)
[2019-12-11] MEDS: CefTRIAXone/D5W-Rocephin 1gm 50 ML IV SCH (09:37)
--- NOTE | 2019-12-11 10:35 | NUR ---
PAGER ID: [phone] MESSAGE: DR. COOL, 0939B, REINA, PLEASE CALL NABIL [phone] REGARDING FOLEY. TSANG.
--- NOTE | 2019-12-11 10:37 | NUR ---
DR. COOL NOTIFIED OF DR. RUIZ'S PROG NOTE 5-10-20 REGARDING WOODY CATH PLACEMENT. STATES" LEAVE IT IN FOR NOW".
[2019-12-11 11:00] VITALS: BP 102/50
[2019-12-11 15:00] VITALS: BP 131/50
--- NOTE | 2019-12-11 16:27 | NUR ---
PAGER ID: [phone] MESSAGE: DR. COOL, CAN 3026A/REINA BE STARTED ON A DIET? CLEAR LIQUIDS? NABIL [id number]. TY.
--- NOTE | 2019-12-11 18:00 | NUR ---
Patient in room PCU 3026. I have received report from Rojelio POWERS and had the opportunity to ask questions and assume patient care.
--- NOTE | 2019-12-11 18:36 | NUR ---
Problems reprioritized. Patient report given, questions answered & plan of care reviewed with GIO PONCE.
--- NOTE | 2019-12-11 19:30 | NUR ---
Problems reprioritized. Patient report given, questions answered & plan of care reviewed with Machelle POWERS.
[2019-12-11] MEDS: atorvastatin 10mg tablet PO SCH (20:51)
[2019-12-11] MEDS: heparin, porcine 5000 units/ml vial SQ SCH (20:51)
[2019-12-11] MEDS: insulin glargine (Lantus) pen - multi-dose SQ SCH (21:00)
[2019-12-12 06:00] VITALS: BP 141/54
[2019-12-12 06:22] LABS: BASOPHILS % (AUTO) 0.2 % (0-1); EOSINOPHILS % (AUTO) 0.2 % (0-6); HEMATOCRIT 24.7 % (42.0-52.0); HEMOGLOBIN 8.3 g/dl (14.0-17.9); LYMPHOCYTES # (AUTO) 0.3 X10'3 (1.1-4.8); LYMPHOCYTES % (AUTO) 4.2 % (21-51); MEAN CORPUSCULAR HEMOGLOBIN 31.4 PG (27.0-31.0); MEAN CORPUSCULAR HGB CONC 33.8 g/dL (33.0-36.5); MEAN CORPUSCULAR VOLUME 92.8 FL (78-98); MEAN PLATELET VOLUME 9.3 FL (7.4-10.4); MONOCYTES # (AUTO) 0.6 X10'3 (0-0.9); NEUTROPHILS # (AUTO) 6.7 X10'3 (1.8-7.7); NEUTROPHILS % (AUTO) 87.4 % (42-75); PLATELET COUNT 237 X10'3 (140-440); RED BLOOD COUNT 2.66 X10'6 (4.70-6.10); RED CELL DISTRIBUTION WIDTH 15.6 % (11.5-14.5); WHITE BLOOD COUNT 7.7 X10'3 (4.5-11.0)
[2019-12-12 06:34] LABS: ANION GAP 8 (8-16); BLOOD UREA NITROGEN 23 MG/DL (7-18); BUN/CREATININE RATIO 18.1 (5.4-32.0); CALCIUM 8.1 MG/DL (8.5-10.1); CHLORIDE 111 MMOL/L (99-107); CREATININE 1.27 MG/DL (0.60-1.10); GLUCOSE 79 MG/DL (70-104); POTASSIUM 3.3 MMOL/L (3.5-5.1); SODIUM 143 MMOL/L (135-145); eGFR 54 ML/MIN
[2019-12-12 06:35] LABS: ALBUMIN 1.9 G/DL (3.4-5.0); MAGNESIUM 1.9 MG/DL (1.5-2.4)
[2019-12-12 07:00] VITALS: BP 120/58
[2019-12-12] MEDS: K and/or MAG REPLACEMENT MC SCH ×2 (08:00→20:00)
[2019-12-12] MEDS: duloxetine 30mg CAPSULE.DR PO SCH (09:19)
[2019-12-12] MEDS: lactobacillus rhamnosus 10,000 MMU CELLS/CAPSULE PO SCH ×2 (09:19→20:34)
[2019-12-12] MEDS: metoprolol succinate 25mg (24-HOUR) SR. Tablet PO SCH (09:19)
[2019-12-12] MEDS: tamsulosin 0.4mg capsule PO SCH (09:19)
[2019-12-12] MEDS: amLODIPine 5mg tablet PO SCH (09:19)
[2019-12-12] MEDS: finasteride 5mg tablet PO SCH (09:20)
[2019-12-12] MEDS: CefTRIAXone/D5W-Rocephin 1gm 50 ML IV SCH (09:20)
[2019-12-12] MEDS: potassium Cl 20 mEq SR tablet PO PRN ×2 (09:20→20:34)
[2019-12-12] MEDS: heparin, porcine 5000 units/ml vial SQ SCH ×2 (09:20→20:34)
[2019-12-12] MEDS: normal saline 1000ml 1,000 ML IV SCH ×2 (09:59→19:19)
[2019-12-12] MEDS ORDERED: iohexol 350MG/ML 100ml bottle IV ONE (11:44)
[2019-12-12] MEDS: MEROPENEM 1GM/NS 50ML IVPB 50 ML IV SCH ×2 (14:32→19:09)
[2019-12-12 15:00] VITALS: BP 126/60
[2019-12-12 18:00] VITALS: BP 133/64
--- NOTE | 2019-12-12 18:15 | NUR ---
Patient in room PCU 3019. I have received report from GIO Gregory and had the opportunity to ask questions and assume patient care.
[2019-12-12] MEDS: atorvastatin 10mg tablet PO SCH (20:34)
[2019-12-12] MEDS: acetaminophen 325mg tablet PO PRN (20:34)
[2019-12-12] MEDS: insulin glargine (Lantus) pen - multi-dose SQ SCH (21:00)
[2019-12-12 22:00] VITALS: BP 130/61
[2019-12-13] MEDS: MEROPENEM 1GM/NS 50ML IVPB 50 ML IV SCH ×3 (00:27→15:14)
[2019-12-13 02:00] VITALS: BP 134/71
[2019-12-13] MEDS: normal saline 1000ml 1,000 ML IV SCH ×2 (02:56→13:33)
[2019-12-13 05:33] LABS: BASOPHILS % (AUTO) 0.3 % (0-1); EOSINOPHILS # (AUTO) 0.1 X10'3 (0-0.9); EOSINOPHILS % (AUTO) 0.9 % (0-6); HEMATOCRIT 27.1 % (42.0-52.0); HEMOGLOBIN 8.9 g/dl (14.0-17.9); LYMPHOCYTES # (AUTO) 0.4 X10'3 (1.1-4.8); LYMPHOCYTES % (AUTO) 5.2 % (21-51); MEAN CORPUSCULAR HEMOGLOBIN 30.4 PG (27.0-31.0); MEAN CORPUSCULAR VOLUME 92.1 FL (78-98); MEAN PLATELET VOLUME 9.3 FL (7.4-10.4); MONOCYTES # (AUTO) 0.8 X10'3 (0-0.9); MONOCYTES % (AUTO) 10.3 % (2-12); NEUTROPHILS # (AUTO) 6.4 X10'3 (1.8-7.7); NEUTROPHILS % (AUTO) 83.3 % (42-75); PLATELET COUNT 255 X10'3 (140-440); RED BLOOD COUNT 2.95 X10'6 (4.70-6.10); RED CELL DISTRIBUTION WIDTH 16.3 % (11.5-14.5); WHITE BLOOD COUNT 7.7 X10'3 (4.5-11.0)
[2019-12-13 05:36] LABS: ALBUMIN 1.9 G/DL (3.4-5.0); ANION GAP 6 (8-16); BLOOD UREA NITROGEN 19 MG/DL (7-18); BUN/CREATININE RATIO 16.8 (5.4-32.0); CALCIUM 8.4 MG/DL (8.5-10.1); CHLORIDE 109 MMOL/L (99-107); CREATININE 1.13 MG/DL (0.60-1.10); GLUCOSE 89 MG/DL (70-104); MAGNESIUM 1.7 MG/DL (1.5-2.4); POTASSIUM 3.5 MMOL/L (3.5-5.1); SODIUM 144 MMOL/L (135-145); TOTAL CARBON DIOXIDE 28.7 MMOL/L (24-32); eGFR 62 ML/MIN
[2019-12-13 06:00] VITALS: BP 155/76
--- NOTE | 2019-12-13 06:25 | NUR ---
Problems reprioritized. Patient report given, questions answered & plan of care reviewed with GIO Felix
[2019-12-13] MEDS: K and/or MAG REPLACEMENT MC SCH (08:00)
[2019-12-13] MEDS: duloxetine 30mg CAPSULE.DR PO SCH (09:21)
[2019-12-13] MEDS: lactobacillus rhamnosus 10,000 MMU CELLS/CAPSULE PO SCH (09:21)
[2019-12-13] MEDS: tamsulosin 0.4mg capsule PO SCH (09:21)
[2019-12-13] MEDS: metoprolol succinate 25mg (24-HOUR) SR. Tablet PO SCH (09:21)
[2019-12-13] MEDS: finasteride 5mg tablet PO SCH (09:21)
[2019-12-13] MEDS: heparin, porcine 5000 units/ml vial SQ SCH (09:22)
[2019-12-13] MEDS: amLODIPine 5mg tablet PO SCH (09:22)
--- NOTE | 2019-12-13 10:42 | NUR ---
made aware of postive blood and urine cultures. PAGER ID: [phone] MESSAGE: MurphyA Neymar Herrera- Positive blood and urine cultures E coli, patient on Meropenum. Elvira [id number]
[2019-12-13 11:00] VITALS: BP 140/61
--- NOTE | 2019-12-13 11:28 | NUR ---
Initial: Patient presents with ALOC and hypoxia from [place] with sepsis r/t UTI, BRANT, metabolic encephalopathy per MD note. Recently admitted with upper GI bleed r/t two ulcers. Patient had guaiac positive stool in ED, no BM since then. On full liquid diet likely r/t recent GI bleed. In past admission patient needed mechanical soft grind all diet d/t difficulty chewing per evaluation by speech therapist on 10/11/2019, needed a feeder at that time as well. Recommend: 1. Advance diet as medically indicated to heart healthy, mechanical soft grind all r/t chewing difficulty per previous ST recommendations 2. Monitor need for feeder 3. Monitor need for ONS if with suboptimal PO Intake when diet is advanced 4. weight per rx Addendum: 12/13/19 at [address] Amended: Links added.
--- NOTE | 2019-12-13 16:23 | NUR ---
5F DUAL LUMEN MIDLINE PLACEMENT PLACED TO RIGHT CEPHALIC VEIN X'S 1 ATTEMPT WITH SUCCESS USING ULTRASOUND GUIDANCE. TIP ENDS MIDAXILLARY. MERCY POWERS
--- NOTE | 2019-12-13 17:06 | NUR ---
Patient stable for [facility] to [place]. Report called to Isabel. PIV removed, cannula intact. Patient sent with Midline in right upper extremity and solo cath in place. Belongings gathered and sent with patient.
== END 2019-12-13 16:58 | DRG 871 ==
LOC: ER 15:11 → ED HOLD 17:19 → PCU 3S 19:15
PROVIDERS: ADMIT Internal Medicine; ATTEND Internal Medicine Infectious Disease
PROC: 30233N1 Transfusion of Nonautologous Red Blood Cells into Peripheral Vein, Percutaneous Approach (ICD-10-PCS; principal; 2019-12-10)
DX: A41.51 Sepsis due to Escherichia coli [E. coli] (principal); G93.41 Metabolic encephalopathy; I21.4 Non-ST elevation (NSTEMI) myocardial infarction; N13.6 Pyonephrosis; N39.0 Urinary tract infection, site not specified; Z16.12 Extended spectrum beta lactamase (ESBL) resistance; N17.9 Acute kidney failure, unspecified; K92.2 Gastrointestinal hemorrhage, unspecified; N13.8 Other obstructive and reflux uropathy; E87.6 Hypokalemia; E11.9 Type 2 diabetes mellitus without complications; Z88.0 Allergy status to penicillin; I25.10 Atherosclerotic heart disease of native coronary artery without angina pectoris; N40.1 Benign prostatic hyperplasia with lower urinary tract symptoms; I10 Essential (primary) hypertension; E78.5 Hyperlipidemia, unspecified; F03.90 Unspecified dementia, unspecified severity, without behavioral disturbance, psychotic disturbance, mood disturbance, and anxiety; K59.00 Constipation, unspecified; N40.0 Benign prostatic hyperplasia without lower urinary tract symptoms; D35.00 Benign neoplasm of unspecified adrenal gland; G89.29 Other chronic pain; M54.9 Dorsalgia, unspecified; R91.1 Solitary pulmonary nodule; K21.9 Gastro-esophageal reflux disease without esophagitis; F32.9 Major depressive disorder, single episode, unspecified; E78.00 Pure hypercholesterolemia, unspecified; Z86.73 Personal history of transient ischemic attack (TIA), and cerebral infarction without residual deficits; Z87.440 Personal history of urinary (tract) infections; Z79.899 Other long term (current) drug therapy; Z87.11 Personal history of peptic ulcer disease; Z87.442 Personal history of urinary calculi
CPT/HCPCS: 36415; 36430; 36600; 70450; 71045; 71275; 74174; 74176; 76937; 80048; 80053; 80305; 80320; 81001; 82140; 82272; 82803; 82948; 83036; 83605; 83735; 83880; 84145; 84484; 85018; 85025; 85610; 85730; 86885; 86900; 86901; 86920; 87040; 87077; 87081; 87088; 87186; 93005; 96365; 96375; 97110; 97116; 97161; 97530; 97535; 99291; C9113; G0378; J0696; J1644; J1815; J1956; J2185; J3475; J7030; P9016; Q9967

== ENCOUNTER 2020-03-06 16:17 | Emergency (ER) | payer OTHER, MEDICARE ==
[~2020-03-06] VITALS: Ht 177.8 cm; Wt 90.9 kg
[~2020-03-06 16:17] MED LIST changes: -ACET325T55 PO; +AMLO5TAB16 PO; -CLOP75TA35 PO
--- NOTE | 2020-03-06 17:04 | NUR ---
DR. LEWIS AT BEDSIDE, PT C/O SUPRAPUBIC PAIN DURING EXAM, OCCULT STOOL WAS NEGATIVE. NO PRESSURE SORES NOTED.
[2020-03-06 17:40] LABS: BASOPHILS # (AUTO) 0.1 X10'3 (0-0.2); BASOPHILS % (AUTO) 0.6 % (0-1); EOSINOPHILS # (AUTO) 0.3 X10'3 (0-0.9); EOSINOPHILS % (AUTO) 2.5 % (0-6); HEMATOCRIT 30.8 % (42.0-52.0); HEMOGLOBIN 9.9 g/dl (14.0-17.9); LYMPHOCYTES # (AUTO) 1.5 X10'3 (1.1-4.8); LYMPHOCYTES % (AUTO) 14.6 % (21-51); MEAN CORPUSCULAR HEMOGLOBIN 27.5 PG (27.0-31.0); MEAN CORPUSCULAR HGB CONC 32.3 g/dL (33.0-36.5); MEAN PLATELET VOLUME 8.1 FL (7.4-10.4); MONOCYTES # (AUTO) 1.1 X10'3 (0-0.9); MONOCYTES % (AUTO) 10.7 % (2-12); NEUTROPHILS # (AUTO) 7.1 X10'3 (1.8-7.7); NEUTROPHILS % (AUTO) 71.6 % (42-75); PLATELET COUNT 364 X10'3 (140-440); RED BLOOD COUNT 3.62 X10'6 (4.70-6.10); RED CELL DISTRIBUTION WIDTH 17.5 % (11.5-14.5)
[2020-03-06 17:55] LABS: ALANINE AMINOTRANSFERASE 51 U/L (12-78); ALBUMIN 2.3 G/DL (3.4-5.0); ALBUMIN/GLOBULIN RATIO 0.5 (1.1-1.5); ALKALINE PHOSPHATASE 90 IU/L (46-116); ANION GAP 6 (8-16); ASPARTATE AMINO TRANSFERASE 17 U/L (10-37); BILIRUBIN,TOTAL 0.3 MG/DL (0.1-1.0); BLOOD UREA NITROGEN 34 MG/DL (7-18); BUN/CREATININE RATIO 29.8 (5.4-32.0); CALCIUM 11.2 MG/DL (8.5-10.1); CHLORIDE 109 MMOL/L (99-107); CREATININE 1.14 MG/DL (0.60-1.10); GLUCOSE 122 MG/DL (70-104); POTASSIUM 4.3 MMOL/L (3.5-5.1); SODIUM 139 MMOL/L (135-145); TOTAL CARBON DIOXIDE 23.7 MMOL/L (24-32); TOTAL PROTEIN 7.2 G/DL (6.4-8.2); eGFR 61 ML/MIN
[2020-03-06] MEDS ORDERED: normal saline 1000ML IV soln IVB ONE ×2 (18:15→18:55)
[2020-03-06 18:18] LABS: CLARITY,URINE TURBID (Clear); COLOR,URINE YELLOW (Yellow); GLUCOSE, URINE NEGATIVE (Neg); KETONES,URINE NEGATIVE (Neg); LEUKOCYTE ESTERASE ,URINE MODERATE (Neg); NITRITES, URINE NEGATIVE (Neg); OCCULT BLOOD,URINE MODERATE (Neg); PROTEIN,URINE 30 mg/dl (Neg); UROBILINOGEN,URINE 0.2 E.U/dL (0.2-1.0)
[2020-03-06 18:19] LABS: UA COLLECTION TYPE FOLEY CATH
[2020-03-06 18:28] LABS: BACTERIA,URINE 3+ /HPF (Neg); WBC CLUMPS,URINE MANY /HPF (NEGATIVE); WBC,URINE TNTC /HPF (0-4)
[2020-03-06 18:29] LABS: SQUAMOUS EPITHELIAL CELL,UR FEW /LPF (FEW)
[2020-03-06] MEDS ORDERED: furosemide 10 MG/1 ML 10ml inj IV ONE (19:05)
[2020-03-06 20:50] LABS: ALANINE AMINOTRANSFERASE 48 U/L (12-78); ALBUMIN 2.2 G/DL (3.4-5.0); ALBUMIN/GLOBULIN RATIO 0.4 (1.1-1.5); ALKALINE PHOSPHATASE 87 IU/L (46-116); ANION GAP 4 (8-16); ASPARTATE AMINO TRANSFERASE 15 U/L (10-37); BILIRUBIN,TOTAL 0.2 MG/DL (0.1-1.0); BLOOD UREA NITROGEN 31 MG/DL (7-18); BUN/CREATININE RATIO 28.2 (5.4-32.0); CALCIUM 10.8 MG/DL (8.5-10.1); CHLORIDE 109 MMOL/L (99-107); GLUCOSE 135 MG/DL (70-104); SODIUM 139 MMOL/L (135-145); TOTAL PROTEIN 7.1 G/DL (6.4-8.2); eGFR 64 ML/MIN
[2020-03-07 00:13] VITALS: BP 99/59
--- NOTE | 2020-03-09 08:30 | NUR ---
PT'S FACILITY CALLED AND INFORMED THAT PT'S HAS AN UNUSUAL RESISTANT UTI AND NEEDED IV ABX. PT'S NURSE STATES THAT THEY ARE ABLE TO ADMINISTER IV ABX. PT'S C/S REPORT FAXED TO THE [facility] FOR FURTHER EVALUATION AND TREATMENT
[2020-03-09] MEDS ORDERED: PANT-47 PO (16:50)
[2020-03-09] MEDS ORDERED: MIRT15TA PO (16:51)
[2020-03-09] MEDS ORDERED: POTA20PA40 PO (16:52)
== END 2020-03-07 00:15 | disposition home or self-care (01) ==
LOC: ER 16:18
DX: E83.52 Hypercalcemia (principal); I25.10 Atherosclerotic heart disease of native coronary artery without angina pectoris; E78.00 Pure hypercholesterolemia, unspecified; I10 Essential (primary) hypertension; E11.9 Type 2 diabetes mellitus without complications; G89.29 Other chronic pain; Z86.73 Personal history of transient ischemic attack (TIA), and cerebral infarction without residual deficits; Z87.442 Personal history of urinary calculi; Z87.440 Personal history of urinary (tract) infections; Z98.890 Other specified postprocedural states; Z88.0 Allergy status to penicillin; Z79.82 Long term (current) use of aspirin; Z79.899 Other long term (current) drug therapy
CPT/HCPCS: 36415; 71045; 80053; 81001; 85025; 87077; 87088; 87186; 93005; 96361; 96374; 99285; J1940; J7030